=== PATIENT | female | born 1950 | race Caucasian/White ===

== ENCOUNTER → 2017-04-29 | Outpatient (CLI) | payer MEDICARE, OTHER | LOC: M.RAD 12:08 | DX: M17.11 Unilateral primary osteoarthritis, right knee (principal) ==

== ENCOUNTER 2019-06-22 12:22 | Inpatient (IN) | payer MEDICARE, OTHER ==
[~2019-06-22] VITALS: Ht 162.6 cm; Wt 83.9 kg
--- NOTE | ~2019-06-22 | PROC ---
[address] [address] PROCEDURE REPORT Name: NEREIDA CONNELLY Room: [address] IN M.R.#: [id number] Admission: 06/22/19 Attend Phys: Shantell Rosa MD Discharge: 06/25/19 Date of : 50 Report #: [id number] THIS REPORT FOR: //name// cc: Noreen Feldman MD, Lin W. MD ~ THIS REPORT FOR: //name// For GI report, please see the Provation report in Perceptive 7 content. By: 0633Medical Records Staff GRACIE /FAIZA
[2019-06-22 12:44] VITALS: BP 146/47
[2019-06-22] MEDS ORDERED: CELEBREX 200 M200 M1 PO (12:49)
[2019-06-22] MEDS ORDERED: PERCOCET 5-3251 EACH PO (12:50)
[2019-06-22] MEDS ORDERED: ASA81BEC PO (12:51)
[2019-06-22 13:18] LABS: ABSOLUTE EOSINOPHILS 0.3 thou/uL (0.0-0.7); ABSOLUTE MONOCYTES 0.4 thou/uL (0.0-1.2); ABSOLUTE NEUTROPHILS 4.6 thou/uL (1.6-8.1); BASOPHILS 0.8 %; EOSINOPHILS 4.4 %; LYMPHOCYTES 15.9 %; MCH 30.1 pg (26.0-34.0); MCHC 31.9 g/dL (28.0-37.0); MCV 94.4 fL (80.0-100.0); MONOCYTES 6.6 %; MPV 7.1 fl. (7.2-11.1); NUCLEATED RBCS 0 /100WBC; PLATELET COUNT* 362 thou/uL (150-400); POLYS 72.3 %; RBC 1.79 mil/uL (4.20-5.00); RDW-CV 16.7 % (10.5-14.5); WBC 6.4 thou/uL (4.0-11.0)
[2019-06-22 13:19] LABS: HEMATOCRIT 16.9 % (37.0-47.0); HEMOGLOBIN 5.4 gm/dL (12.0-15.0)
[2019-06-22 13:29] LABS: CALCIUM 8.2 mg/dL (8.5-10.1); CREATININE 0.6 mg/dL (0.6-1.3); POTASSIUM 3.7 mmol/L (3.5-5.1)
[2019-06-22 13:40] LABS: ALBUMIN 2.7 g/dL (3.4-5.0); TOTAL BILIRUBIN 0.2 mg/dL (<0.1-1.0); TOTAL PROTEIN 5.2 g/dL (6.4-8.2)
[2019-06-22 15:31] LABS: URINE BILIRUBIN NEGATIVE (Negative); URINE BLOOD NEGATIVE (Negative); URINE CLARITY CLEAR; URINE COLOR YELLOW; URINE GLUCOSE-RANDOM NEGATIVE (Negative); URINE KETONES NEGATIVE (Negative); URINE LEUKOCYTES-REFLEX 1+ (Negative); URINE NITRITE-REFLEX NEGATIVE (Negative); URINE PROTEIN NEGATIVE (Negative); URINE SPECIFIC GRAVITY <= 1.005 (1.005-1.030); URINE UROBILINOGEN 0.2 E.U./dl (0.2-1.0)
[2019-06-22 15:44] LABS: BACTERIA-REFLEX 1-9 Few /HPF (None Seen); CASTS None Seen /LPF (None Seen); CRYSTALS None Seen /LPF (None Seen); MUCUS 0-3 Light strn/LPF (None Seen); SQUAMOUS 0-3 Few /LPF (0-3); URINE RBC 0-2 Rare /HPF (0-2); URINE WBC-REFLEX 6-15 Few /HPF (0-5)
--- NOTE | 2019-06-22 16:52 | EKG ---
[place] [address] ELECTROCARDIOGRAM REPORT Name: JUANASHERRINEREIDA CALVIN Room: [place] [address] ADM IN .R.#: [id number] Admission: 06/22/19 Attend Phys: Shantell Rosa, Discharge: Date of : 50 Date of Service: 06/22/19 1328 Report #: [id number] THIS REPORT FOR: //name// [facility] ED Test Date: 2019-06-22 Test Time: 13:28:20 Pat Name: NEREIDA CONNELLY Department: Room: [facility] Gender: F Gun Numberer: : 1950 Requested By: Kevin Rocha Order Number: [id number] MD: Ji Lucas Measurements Intervals [place] Rate: 94 P: 22 WY: 142 QRS: 40 QRSD: 90 T: 69 QT: 352 QTc: 441 Interpretive Statements Sinus rhythm Abnormal R-wave progression, early transition No previous ECG available for comparison Electronically Signed On 06-22-2019 16:51:35 RADIOLOGICAL METALLURGIST by Ji Lucas [email or web address] <ELECTRONICALLY SIGNED> By: Ji Lucas MD, [facility] 06/22/19 1651 1328 1328 Ji Lucas MD, [facility] /EPI
[2019-06-22 19:59] VITALS: BP 156/62
[2019-06-22 20:00] VITALS: BP 141/50
[2019-06-22 20:20] VITALS: BP 141/50
[2019-06-22 22:25] VITALS: BP 108/55; BP 111/56; BP 113/58; BP 123/57; BP 128/58
[2019-06-23] VITALS (7 sets, daily range): BP systolic 116–163; BP diastolic 45–74
[2019-06-23 04:58] LABS: MCH 30.5 pg (26.0-34.0); MCHC 32.5 g/dL (28.0-37.0); MCV 93.8 fL (80.0-100.0); MPV 7.4 fl. (7.2-11.1); RBC 1.95 mil/uL (4.20-5.00); RDW-CV 15.1 % (10.5-14.5); WBC 4.8 thou/uL (4.0-11.0)
--- NOTE | 2019-06-23 05:10 | NUR ---
PT RECIEVED FROM ED IN ROOM 231. SAT MAINTAINED IN RA. ALERT AND ORIENTED X4. C/O PAIN, MEDICATION GIVEN PER EMAR. ONE UNIT OF BLOOD TRANSFUSED. PROTONIX GTT RUNNING. CALL LIGHT WITHIN REACH AND BED IN LOW POSITION. HOURLY ROUNDING DONE FOR PT SAFETY.
[2019-06-23 05:18] LABS: ALBUMIN 2.3 g/dL (3.4-5.0); CALCIUM 7.4 mg/dL (8.5-10.1); CREATININE 0.5 mg/dL (0.6-1.3); POTASSIUM 3.8 mmol/L (3.5-5.1); TOTAL BILIRUBIN 0.5 mg/dL (<0.1-1.0); TOTAL PROTEIN 4.6 g/dL (6.4-8.2)
[2019-06-23 05:50] LABS: HEMATOCRIT 18.3 % (37.0-47.0)
--- NOTE | 2019-06-23 11:15 | NUR ---
MET WITH PT TO DISCUSS HOME SITUATION/DC PLANNING. PT LIVES WITH SPOUSE. HE HAS BEEN ASSISTING HER SINCE RECENT OUTPT KNEE SURGERY AT [facility]. SHE HAD HH FOR 2 WEEKS WITH [facility] (SHE THINKS) AND HAD JUST STARTED OUTPT THERAPY AT [facility]. CALLED TO CONFIRM, PER [facility] [phone],. PT JUST NEEDS TO CALL TO RESCHEDULE NEXT APPT. PT HAS WALKER, CANE, TOILET RISER. STATES HAS STEPS AT HOME BUT DOING WELL UNTIL THIS ADMIT. PLANS TO RETURN TO OUTPT THERAPY AT [place]. WILL FOLLOW
--- NOTE | 2019-06-23 12:57 | NUR ---
PT RESTING, CLWR. VSS ON RA. SR ON . C/O PAIN TO LOWER BACK. MED PATCH IN PLACE AND SUPPORT TO BACK. PT TOLERATED BLOOD TRANSFUSION WITHOUT DIFFICULTY. LS CTA. PT NPO FOR PROCEDURE. WCTM
--- NOTE | 2019-06-23 16:36 | 2DMMODE ---
[place] [address] 2 D/M-MODE ECHOCARDIOGRAM Name: MARICELNEREIDA Renteria Room: [address] IN [facility]#: [id number] Admission: 06/22/19 Attend Phys: Shantell Rosa, Discharge: Date of : 50 Date of Service: 06/23/19 1634 Report #: [id number] THIS REPORT FOR: cc: Noreen Feldman MD, Lin W. MD Liston, Michael J. MD [facility] ~ APPROVED REPORT Study performed: 06/23/2019 10:43:22 EXAM: Comprehensive 2D, Doppler, and color-flow Echocardiogram Patient Location: In-Patient Room #: [facility] Status: routine BSA: 1.89 HR: 96 bpm BP: 1161/59 mmHg Rhythm: NSR Other Information Study Quality: Good Indications Murmur 2D Dimensions IVSd: 13.05 (7-11mm) LVOT Diam: 19.06 (18-24mm) LVDd: 43.12 mm PWd: 10.40 (7-11mm) Ascending Ao: 28.95 (22-36mm) LVDs: 19.79 (25-40mm) Volumes Left Atrial Volume (Systole) LA ESV Index: 43.30 mL/m2 Aortic Valve AoV Peak Marcelino.: 1.86 m/s AO Peak Gr.: 13.81 mmHg LVOT Max P.69 mmHg AO Mean Gr.: 7.83 mmHg LVOT Mean P.09 mmHg LVOT Max V: 1.47 m/s AO V2 VTI: 38.95 cm LVOT Mean V: 1.07 m/s NANCY (VTI): 2.60 cm2 LVOT V1 VTI: 35.56 [place] [address] 2 D/M-MODE ECHOCARDIOGRAM Name: NEREIDA CONNELLY Room: [address] IN ..#: [id number] Admission: 06/22/19 Attend Phys: Shantell Rosa, Discharge: Date of : 50 Date of Service: 06/23/19 1634 Report #: [id number] E/A Ratio: 0.85 MV Decel. Time: 227.91 ms MV E Max Marcelino.: 1.20 m/s MV PHT: 66.09 ms MVA (PHT): 3.33 cm2 TDI E/Lateral E': 10.91 E/Medial E': 13.33 Medial E' Marcelino.: 0.09 m/s Lateral E' Marcelino.: 0.11 m/s Pulmonary Valve PV Peak Marcelino.: 1.28 m/s PV Peak Gr.: 6.59 mmHg Left Ventricle The left ventricle is normal size. There is normal LV segmental wall motion. Mild concentric left ventricular hypertrophy. Left ventricular systolic function is vigorous. LVEF is >70%. Grade I - abnormal relaxation pattern. Right Ventricle The right ventricle is normal size. The right ventricular systolic function is normal. Atria Left atrium is moderately dilated. The right atrium size is normal. Aortic Valve Mild aortic valve sclerosis. No aortic regurgitation is present. There is no aortic valvular stenosis. Mitral Valve The mitral valve is normal in structure. Trace mitral regurgitation. No evidence of mitral valve stenosis. Tricuspid Valve The tricuspid valve is normal in structure. Trace tricuspid regurgitation. Unable to assess PA pressure. Pulmonic Valve The pulmonary valve is normal in structure. There is no pulmonic valvular regurgitation. Great Vessels The aortic root is normal in size. IVC [place] [address] 2 D/M-MODE ECHOCARDIOGRAM Name: NEREIDA CONNELLY Dexter Room: [address] IN [facility]#: [id number] Admission: 06/22/19 Attend Phys: Shantell Rosa, Discharge: Date of : 50 Date of Service: 06/23/19 1634 Report #: [id number] collapses >50% with inspiration. Pericardium There is no pericardial effusion. <Conclusion> The left ventricle is normal size. Mild concentric left ventricular hypertrophy. Left ventricular systolic function is vigorous. LVEF is >70%. Grade I - abnormal relaxation pattern. Left atrium is moderately dilated. Trace mitral regurgitation. Trace tricuspid regurgitation. IVC is normal in size and collapses >50% with inspiration. <ELECTRONICALLY SIGNED> By: David Arroyo MD, FACC 06/23/19 1634 1634 1634 David Arroyo MD, FACC /INF
[2019-06-24] VITALS (7 sets, daily range): BP systolic 133–166; BP diastolic 52–78
[2019-06-24 04:40] LABS: HEMATOCRIT 20.7 % (37.0-47.0); MCH 29.8 pg (26.0-34.0); MCHC 33.2 g/dL (28.0-37.0); MCV 89.6 fL (80.0-100.0); MPV 7.3 fl. (7.2-11.1); RBC 2.31 mil/uL (4.20-5.00); RDW-CV 17.2 % (10.5-14.5); WBC 4.8 thou/uL (4.0-11.0)
--- NOTE | 2019-06-24 04:47 | NUR ---
PATIENT HAS REMAINED ALERT AND ORIENTED X 4 THROUGHOUT THE SHIFT AND RESTING QUIETLY ON HOURLY ROUNDS. UP TO C WITH GAIT BELT AND WALKER. NEEDS ASSIST WITH RLE ( RECENT TOTAL KNEE) IN AND OUT OF BED. HAS NOT BEEN DIZZY WHEN UP BUT STILL FEELS WEAK. MEDICATED FOR RIGHT KNEE PAIN X 2. LOW GRADE TEMP. MEDS AND IVF'S PER ORDER. VITAL SIGNS STABLE. SR ON THE MONITOR FOR THE SHIFT. CONTINUE TO MONITOR.
[2019-06-24 05:22] LABS: CALCIUM 7.5 mg/dL (8.5-10.1); CREATININE 0.6 mg/dL (0.6-1.3); MAGNESIUM 2.1 mg/dL (1.8-2.4); POTASSIUM 3.6 mmol/L (3.5-5.1)
[2019-06-24 05:31] LABS: HEMOGLOBIN 6.9 gm/dL (12.0-15.0)
--- NOTE | 2019-06-24 06:19 | NUR ---
Critical lab Hgb 6.9 this am. Valdo sent with results. Before return call from primary, consulting physician has entered orders for IV iron. Second page to primary with updated order info. Continue to monitor.
--- NOTE | 2019-06-24 14:26 | NUR ---
CONTINUE TO FOLLOW, MET WITH PT AND SPOUSE. PT STATES FEELING IMPROVED, GETTING IRON INFUSION AND POSSIBLE ANOTHER BLOOD TRANSFUSION. TO WORK WITH THERAPY TODAY BUT UP WITH WALKER TO BR EARLIER AND STATES DID WELL. PT PLANS TO RETURN HOME AT [facility] SPOUSE AND RESUME HER OUTPT THERAPY. NUMBER IN HER DC PAPERS. NO OTHER NEEDS ID'D
--- NOTE | 2019-06-24 19:01 | NUR ---
BERNICE RESTING IN BED. UP AD EDER IN ROOM. BLOOD TRANSFUSION COMPLETED. HOURLY ROUNDING COMPLETED FOR PATIENT SAFETY.
[2019-06-25 04:00] VITALS: BP 149/60
--- NOTE | 2019-06-25 04:39 | NUR ---
ASSUMED CARE AT 1920H, ON RA AND TOLERATED.NO DISTRESS AND NO PAIN NOTED.NO POST REACTION FROM BLOOD TRANSFUSION.CONTINUE MONITORING AND TOWARD GOALS,
[2019-06-25 05:19] LABS: CREATININE 0.6 mg/dL (0.6-1.3); MAGNESIUM 2.1 mg/dL (1.8-2.4); POTASSIUM 3.6 mmol/L (3.5-5.1)
[2019-06-25 05:21] LABS: HEMATOCRIT 28.1 % (37.0-47.0); MCHC 32.5 g/dL (28.0-37.0); MCV 89.1 fL (80.0-100.0); MPV 7.6 fl. (7.2-11.1); RBC 3.16 mil/uL (4.20-5.00); RDW-CV 16.3 % (10.5-14.5); WBC 4.7 thou/uL (4.0-11.0)
[2019-06-25 05:33] LABS: HEMOGLOBIN 9.1 gm/dL (12.0-15.0)
[2019-06-25 08:00] VITALS: BP 147/69
[2019-06-25] MEDS ORDERED: PANTOPRAZOLE SO40 M1 PO (10:11)
[2019-06-25] MEDS ORDERED: BACTRIM DS TAB1 EAC1 PO (10:11)
[2019-06-25] MEDS ORDERED: LIDOPATCH1 EACH TOP (10:11)
[2019-06-25 13:46] VITALS: BP 147/74
--- NOTE | 2019-06-25 18:00 | NUR ---
PT VSS, A&OX4, NSR ON TELE, UP WITH WALKER DUE TO RT KNEE REPLACEMENT, HOURLY ROUNDING PERFORMED, POSSESSIONS AND CALL LIGHT WITHIN REACH. REC DISCHARGE ORDERS, REVIEWED WITH PATIENT, REMOVED TELE MONITOR AND IV WITHOUT COMPLICATION. PATIENT TAKEN IN WHEELCHAIR BY NURSING STAFF TO FRONT DOOR, PICKED UP BY SPOUSE IN FAMILY CAR.
--- NOTE | 2019-06-27 15:42 | NUR ---
RECEIVED CALL FROM SID/YUNI ANAYA AT DR NIXON'S OFFICE RE: PT NOT HEARD FROM HH YET. PER DC SUMMARY, HAD ORDERS FOR HH AT OR ON 06/24. NONE WAS ARRANGED AND PER CM CONVERSATIONS WITH PT ON 06/23, SHE PLANNED TO RETURN TO HER PREVIOUSLY ARRANGED OUTPT PHYSICAL THERAPY. BUT PER DC ORDERS, NEEDED A CBC DRAWN TODAY, WHICH DID NOT GET DONE. CALL TO PT, SHE STATED SHE WAS GOING BACK TO HER OUTPT THERAPY AND HAS APPT TOMORROW WITH DR SYED FOR IRON AND WILL ASK FOR THAT OFFICE TO DRAW HER CBC. ANSWERED QUESTIONS ABOUT GI/MEDS/GAVE GI DR JOSEPH AND TALKED WITH PT ABOUT HOW SHE WAS DOING. SHE WAS RELIEVED TO GET ALL INFO. F/U CALL TO SID/DR NIXON TO UPDATE
--- NOTE | 2019-07-03 16:24 | CON ---
[facility] [address] [place] [address] CONSULTATION Name: NEREIDA CONNELLY Room: [address] IN M.R.#: [id number] Admission: 06/22/19 Attend Phys: Shantell Rosa MD Discharge: 06/25/19 Date of : 50 Report #: [id number] THIS REPORT FOR: //name// cc: Noreen Feldman MD, Lin W. MD ~ THIS REPORT FOR: //name// CC: Shantell Feldman MD DICTATED BY: Yanet Blanchard [facility] DATE OF SERVICE: 06/23/2019 PRIMARY CARE PHYSICIAN: Noreen Feldman M.D. Please note at the time of this dictation, the patient was seen and physically examined by myself. REASON FOR CONSULTATION: Acute anemia, questionable melanotic stool. HISTORY OF PRESENT ILLNESS: This is a 69-year-old female who presented to the Emergency Room with worsening of her dizziness or lightheadedness. She was feeling short of breath, have any exertional dyspnea and some chest discomfort, which has progressively gotten worse over the past week. She states she was very fatigued, having difficulty trying to do rehab on her knee. The patient underwent a right knee replacement at [facility] on 05/30. She had been taking Celebrex and aspirin on a daily basis and recently quit taking that as well. She also quit taking her pantoprazole. The patient states she does have occasional issue with GERD and she will take Tums for that. The patient did undergo an EGD and colonoscopy back in 2016 that showed medium hiatal hernia. The rest was normal. Colonoscopy showed some nonbleeding hemorrhoids and that was essentially negative. The patient states she has been receiving iron infusions with Dr. Valera about once or twice a year. Her last one was in 01/2019. Otherwise, she denies any nausea or vomiting. She has had somewhat of a decreased appetite. No abdominal pain. She states her stools have been loose, which had been ongoing for a while. She states they had become darker recently and then when she started taking pain medicine, her stools did form up because of that and then when she quit taking the pain medicine, they have gone back to being very loose several times a day, but they are significantly darker than what they have been in the past. ALLERGIES: No known drug allergies. MEDICATIONS FROM HOME: Recently quit taking her Celebrex [place] [address] CONSULTATION Name: NEREIDA CONNELLY Room: [address]#: [id number] Admission: 06/22/19 Attend Phys: Shantell Rosa MD Discharge: 06/25/19 Date of : 50 Report #: [id number] aspirin and her Percocet. PAST MEDICAL HISTORY: History of breast cancer. PAST SURGICAL HISTORY: Tonsillectomy, hysterectomy, right lumpectomy, left knee surgery and now right knee surgery. FAMILY HISTORY: Mother pancreatic cancer. SOCIAL HISTORY: . Denies any alcohol, tobacco or illegal drug use. REVIEW OF SYSTEMS: Twelve-point review of systems is essentially negative except what is mentioned in the HPI. PHYSICAL EXAMINATION: VITAL SIGNS: Temperature 36.7, pulse 92, respirations 19, blood pressure 116/59. LUNGS: Diminished, but clear. CARDIOVASCULAR: Regular rate and rhythm. Murmur noted. ABDOMEN: Soft, positive bowel sounds in all 4 quadrants with no masses or tenderness noted. LABORATORY DATA: Hemoglobin on admission was 5.4. She got a unit of blood, it came up to 6. White count is 4.8, platelets 309. GFR is 122. Her iron was 26, TIBC 309, percentage sat 8 and ferritin was 55. B12 was 282. BUN is normal at 10. IMPRESSION: 1. Acute anemia. 2. Questionable melanotic stool. 3. History of iron deficiency anemia, receives iron infusions, Dr. Valera. 4. Nonsteroidal use Celebrex. 5. Recent knee replacement on the right, 3 weeks ago. 6. History of gastroesophageal reflux disease. 7. Personal history of breast cancer. 8. Family history pancreatic cancer. PLAN: 1. EGD today with Dr. Brady. 2. Continue her Protonix drip. 3. Further recommendations to be made after the procedure has been performed. Thank you for allowing us to participate in this patient's care. Please do not hesitate to call with any questions in regard to this consult. Agree with above assessment and plan by [place] [address] CONSULTATION Name: NEREIDA CONNELLY Dexter Room: [address]#: [id number] Admission: 06/22/19 Attend Phys: Shantell Rosa MD Discharge: 06/25/19 Date of : 50 Report #: [id number]. <ELECTRONICALLY SIGNED> By: Santy Brady MD 07/03/19 1624 0847 1017Santy Brady MD /
== END 2019-06-25 18:33 | disposition home health service (06) | DRG 378 ==
LOC: M.ERS 12:22 → M.TBA-ER 15:24 → M.2W 15:24
PROVIDERS: Physician Assistant; ADMIT Internal Medicine
PROC: 30233N1 Transfusion of Nonautologous Red Blood Cells into Peripheral Vein, Percutaneous Approach (ICD-10-PCS; principal; 2019-06-23)
PROC: 0D748ZZ Dilation of Esophagogastric Junction, Via Natural or Artificial Opening Endoscopic (ICD-10-PCS; principal; 2019-06-23)
DX: K25.4 Chronic or unspecified gastric ulcer with hemorrhage (principal); E44.0 Moderate protein-calorie malnutrition; K22.2 Esophageal obstruction; R01.1 Cardiac murmur, unspecified; D50.0 Iron deficiency anemia secondary to blood loss (chronic); K21.9 Gastro-esophageal reflux disease without esophagitis; K44.9 Diaphragmatic hernia without obstruction or gangrene; Z96.651 Presence of right artificial knee joint; Z80.8 Family history of malignant neoplasm of other organs or systems; Z90.49 Acquired absence of other specified parts of digestive tract; Z90.710 Acquired absence of both cervix and uterus; Z80.3 Family history of malignant neoplasm of breast; Z79.82 Long term (current) use of aspirin; Z79.899 Other long term (current) drug therapy; Z68.29 Body mass index [BMI] 29.0-29.9, adult

== ENCOUNTER 2019-11-12 13:23 | Inpatient (IN) | payer MEDICARE, OTHER ==
[~2019-11-12] VITALS: Ht 165.1 cm; Wt 88.5 kg
--- NOTE | ~2019-11-12 | OP ---
[facility] [address] [place] [address] OPERATIVE REPORT Name: NEREIDA CONNELLY Room: [address] IN .R.#: [id number] Admission: 11/12/19 Attend Phys: Charlette Boykin Discharge: 11/13/19 Date of : 50 Report #: [id number] THIS REPORT FOR: //name// cc: Noreen Feldman MD, Lin W. MD ~ THIS REPORT FOR: //name// CC: Helene Quintero DATE OF SERVICE: 11/12/2019 PREOPERATIVE DIAGNOSES: 1. Acute appendicitis. 2. Umbilical hernia. POSTOPERATIVE DIAGNOSES: 1. Acute appendicitis. 2. Umbilical hernia. OPERATIVE PROCEDURE: Laparoscopic appendectomy, repair of incarcerated umbilical hernia. ANESTHESIA: General endotracheal. OPERATIVE FINDINGS: Incarcerated umbilical hernia with acute appendicitis without perforation. DESCRIPTION OF PROCEDURE: The patient was placed under general endotracheal anesthesia and the patient's abdomen was prepped and draped in the usual sterile fashion. Timeout taken. Preop antibiotics was administered. I began by making a transverse incision supraumbilically and transdissecting with pickups and cautery with an S retractors to unroof an incarcerated umbilical hernia, which was freed from its sidewalls and the edges of the fascial defect and reduced back into the peritoneal cavity with a good opening. I then used 2-0 Prolene sutures, anchoring sutures to place the Emanuel trocar and secure at the skin. Insufflation with carbon dioxide to 5 liters was completed and a 5 mm 30-degree scope was inserted. The right lower quadrant was inspected under direct visualization, the suprapubic incision followed by passage of a bladeless trocar there and again in the right mid abdomen. Infiltration with local followed by a small stab incision and tunneling into the peritoneal cavity, a 5 mm trocar, there was established. The patient was placed in Trendelenburg and left lateral decubitus position, the appendix was carefully dissected out and lifted up. The mesoappendix was carefully dissected with ligature and then with an Endo-DEEDEE stapler fired across the appendiceal cecal junction. The appendix was freed, [place] [address] OPERATIVE REPORT Name: NEREIDA CONNELLY Room: [address] IN [facility]#: [id number] Admission: 11/12/19 Attend Phys: Charlette Boykin Discharge: 11/13/19 Date of : 50 Report #: [id number] Endopouch was fed into the abdomen and the appendix was placed in a pouch and the pouch was closed and retrieved from the umbilical incision site. Inspection of the operative site showed no active bleeding. The area was irrigated and aspirated free of fluid. I then placed the patient back in a neutral position and removed the laparoscopic instruments and released pneumoperitoneum. At the site of the umbilical hernia, another 2-0 Prolene sutures were passed through the fascial defect and tied closing the umbilical hernia and then the incisions were closed with buried 4-0 PDS sutures and sealed with Dermabond. ESTIMATED BLOOD LOSS: 5 mL. Sponge and instrument count correct. Specimen to pathology. The patient was returned to recovery room in satisfactory condition. By: 1225 [id number] Braun MD /nt
[~2019-11-12 13:23] MED LIST: ASA81BEC PO; BACTRIM DS TAB1 EAC1 PO; CELEBREX 200 M200 M1 PO; LIDOPATCH1 EACH TOP; PANTOPRAZOLE SO40 M1 PO; PERCOCET 5-3251 EACH PO
[2019-11-12 13:47] VITALS: BP 133/71
[2019-11-12 14:10] LABS: HEMATOCRIT 42.4 % (37.0-47.0); HEMOGLOBIN 14.3 gm/dL (12.0-15.0); MCH 27.9 pg (26.0-34.0); MCHC 33.7 g/dL (28.0-37.0); MCV 82.9 fL (80.0-100.0); NUCLEATED RBCS 0 /100WBC; PLATELET COUNT* 265 thou/uL (150-400); RBC 5.12 mil/uL (4.20-5.00); RDW-CV 14.4 % (10.5-14.5); WBC 16.9 thou/uL (4.0-11.0)
[2019-11-12 14:33] LABS: CALCIUM 8.4 mg/dL (8.5-10.1); CREATININE 0.9 mg/dL (0.6-1.3); POTASSIUM 3.6 mmol/L (3.5-5.1)
[2019-11-12 14:37] LABS: ALBUMIN 3.7 g/dL (3.4-5.0); TOTAL BILIRUBIN 1.6 mg/dL (<0.1-1.0); TOTAL PROTEIN 7.4 g/dL (6.4-8.2)
[2019-11-12 14:40] LABS: ABSOLUTE EOSINOPHILS 0.2 thou/uL (0.0-0.7); ABSOLUTE LYMPHOCYTES 1.4 thou/uL (0.8-5.3); ABSOLUTE MONOCYTES 0.3 thou/uL (0.0-1.2); PLATELET ESTIMATE ADEQUATE
[2019-11-12 15:46] LABS: URINE BILIRUBIN NEGATIVE (Negative); URINE BLOOD TRACE (Negative); URINE CLARITY CLEAR; URINE COLOR YELLOW; URINE GLUCOSE-RANDOM NEGATIVE (Negative); URINE KETONES TRACE (Negative); URINE LEUKOCYTES-REFLEX 1+ (Negative); URINE NITRITE-REFLEX NEGATIVE (Negative); URINE PROTEIN NEGATIVE (Negative); URINE SPECIFIC GRAVITY <= 1.005 (1.005-1.030); URINE UROBILINOGEN 0.2 E.U./dl (0.2-1.0)
[2019-11-12 15:51] LABS: SQUAMOUS >10 Many /LPF (0-3)
[2019-11-12 15:52] LABS: URINE RBC 3-10 Few /HPF (0-2); URINE WBC-REFLEX 0-5 Rare /HPF (0-5)
[2019-11-12 15:53] LABS: CASTS None Seen /LPF (None Seen); CRYSTALS None Seen /LPF (None Seen); MUCUS 0-3 Light strn/LPF (None Seen)
[2019-11-12 16:20] LABS: APTT 26.1 Seconds (25.0-31.3); PROTIME 10.7 Seconds (9.20-11.50)
[2019-11-12 17:00] VITALS: BP 165/64
--- NOTE | 2019-11-12 19:47 | NUR ---
PATIENT ARRIEVED FROM RECOVERY AT 1900. PATIENT SETTLED TO ROOM. PATIENT ALERT AND ORIENTED. PATIENT DENIES ANY PAIN OR NAUSEA. PATIENT GIVEN JELLO AND TOLERATED WELL. PATIENT ASSISTED TO BEDPAN TO URINATE. LAP SITES X 3 APPROXIMATED WELL. PATIENT DENIES ANY NEEDS AT THIS TIME. CALL LIGHT WITHIN REACH.
[2019-11-12 20:00] VITALS: BP 138/64
[2019-11-12 21:35] VITALS: BP 138/64
[2019-11-13] VITALS: BP 152/64
[2019-11-13 04:05] VITALS: BP 152/76
[2019-11-13 04:12] LABS: ABSOLUTE LYMPHOCYTES 0.4 thou/uL (0.8-5.3); ABSOLUTE MONOCYTES 0.4 thou/uL (0.0-1.2); ABSOLUTE NEUTROPHILS 10.7 thou/uL (1.6-8.1); HEMATOCRIT 39.9 % (37.0-47.0); HEMOGLOBIN 12.9 gm/dL (12.0-15.0); LYMPHOCYTES 3.9 %; MCHC 32.3 g/dL (28.0-37.0); MCV 86.5 fL (80.0-100.0); MONOCYTES 3.2 %; MPV 7.8 fl. (7.2-11.1); NUCLEATED RBCS 0 /100WBC; PLATELET COUNT* 197 thou/uL (150-400); POLYS 92.9 %; RBC 4.61 mil/uL (4.20-5.00); RDW-CV 14.9 % (10.5-14.5); WBC 11.5 thou/uL (4.0-11.0)
--- NOTE | 2019-11-13 07:06 | NUR ---
PATIENT ADMITTED TO UNIT FROM THE PACU AT APPROXIMATEY 1900. VSS ON RA. PATIENT AWAKE AND DOING WELL. PAIN VERY WELL CONTROLLED. PATIENT ORIENTED TO ROOM AND POLICIES. PATIENT HAS BEEN UP AMBULATING TO THE BATHROOM AND URINATING ADEQUATELY. LAP SITES X 3 ARE WELL APPROXIMATED AND PARKING CASHIER. PATIENT HAS TOLERATED A REGULAR DIET WITH NO C/O OF NAUSE OR VOMITING. IV IN LEFT HAND-NS @ 80ML/HR. PATIENT INSTRUCTED TO USE CALL LIGHT WHEN NEEDING ASSISTANCE. HOURLY ROUNDS MADE. WILL CONTINUE WITH PLAN OF CARE AND NURSING TO MONITOR.
[2019-11-13 07:25] VITALS: BP 149/71
[2019-11-13 09:28] VITALS: BP 149/71
--- NOTE | 2019-11-13 12:30 | NUR ---
PT GIVEN DISCHARGE INFORMATION. PT DID NOT WANT TO WAIT FOR PAIN MED PRESCRIPTION. PT EDUCATED ON CALLING DOCTOR IF NEEDING MEDS. PT VERBALIZED UNDERSTANDING. IV REMOVED. PT LEFT VIA WHEELCHAIR WITH FAMILY TO HOME. FALL RISK PRECAUTIONS IN PLACE. HOURLY ROUNDING COMPLETED.
[2019-11-13 12:33] VITALS: BP 149/71
--- NOTE | 2019-11-13 17:58 | CON ---
[address] [address] CONSULTATION Name: NEREIDA CONNELLY Room: [address]R.#: [id number] Admission: 11/12/19 Attend Phys: Charlette Boykin Discharge: 11/13/19 Date of : 50 Report #: [id number] THIS REPORT FOR: //name// cc: Noreen Feldman MD, Lin W. MD ~ THIS REPORT FOR: //name// CC: Helene Quintero DATE OF SERVICE: 11/12/2019 SURGICAL CONSULTATION REPORT ADMITTING DIAGNOSIS: Acute appendicitis. HISTORY OF PRESENT ILLNESS: The patient is a 69-year-old female with a history of breast cancer, gallbladder disease, who presents with a day and a half of worsening progressive abdominal pain localizing to the right lower quadrant. She was seen by the Emergency Department and was noted to be tender in her right lower quadrant and on physical exam and then CT scanning was revealed to have acute appendicitis and so surgery was consulted. PAST SURGICAL HISTORY: Includes a hysterectomy. She has had chemotherapy in the past as well. REVIEW OF SYSTEMS: Otherwise, there has been no acute weight loss, shortness of breath, chest pain. PHYSICAL EXAMINATION: GENERAL: Obese female, lying in bed. HEAD, EARS, EYES, NOSE AND THROAT: Unremarkable. Sclerae are anicteric. NECK: Supple. LUNGS: Clear. CARDIAC: Regular rate and rhythm without murmur. ABDOMEN: Soft with a healed umbilical scar and right upper quadrant and Pfannenstiel scars with no hernia. EXTREMITIES: Without varicosities or pitting edema, right lower quadrant tenderness on palpation. White blood cell count of 17,000. IMPRESSION AND PLAN: Acute appendicitis. I have outlined laparoscopic [facility] [address] [place] [address] CONSULTATION Name: NEREIDA CONNELLY Room: [address] IN .R.#: [id number] Admission: 11/12/19 Attend Phys: Charlette Boykin Discharge: 11/13/19 Date of : 50 Report #: [id number] appendectomy its risks and benefits, answered her questions. She understands and wishes to proceed. <ELECTRONICALLY SIGNED> By: Helene Braun MD 11/13/19 1758 1630 1657Helene Branu MD /nt
--- NOTE | 2019-11-14 11:04 | EKG ---
[place] [address] ELECTROCARDIOGRAM REPORT Name: NEREIDA CONNELLY Room: [address] IN M.R.#: [id number] Admission: 11/12/19 Attend Phys: Ron Quintero Discharge: 11/13/19 Date of : 50 Date of Service: 11/12/19 1620 Report #: [id number] THIS REPORT FOR: //name// [facility] ED Test Date: 2019-11-12 Test Time: 16:20:38 Pat Name: NEREIDA CONNELLY Department: Room: [facility] Gender: F Checkerer Hand: REEMA : 1950 Requested By: Kevin Rocha Order Number: [id number] MD: Alex Rehman Measurements Intervals [place] Rate: 92 P: 40 OR: 138 QRS: 41 QRSD: 94 T: 62 QT: 379 QTc: 469 Interpretive Statements Sinus rhythm Compared to ECG 06/22/2019 13:28:20 No significant changes Electronically Signed On 11-14-2019 11:03:57 CDT by Alex Rehman [email or web address] <ELECTRONICALLY SIGNED> By: Alex Rehman MD, [facility] 11/14/19 1103 1620 1620 Alex Rehman MD, [facility] /EPI
--- NOTE | 2019-11-18 12:06 | PATH ---
[address] [address] PATHOLOGY RPT PROCEDURE Name: NEREIDA JORGE Room: [address] IN M.R.#: [id number] Admission: 11/12/19 Date of : 50 Discharge: 11/13/19 Report #: [id number] Path Case #: [id number] [facility] Accession Number: [id number] . 01 Material submitted: . appendix - APPENDIX . 01 Clinical history: . Acute appendicitis . 02 Diagnosis: Vermiform appendix, excision: - Acute appendicitis with acute serositis. - Fecalith. - Negative for malignancy. . (MLK:jesica; 11/17/2019) QMS 11/18/2019 1110 Local . 02 Electronically signed: . Cassy Dominguez MD, Pathologist NPI- [id number] . 01 Gross description: . The specimen is received in formalin, labeled "Nereida Jorge, appendix" and consists of an appendix measuring 8.0 cm in length and up to 1.1 cm in diameter with mesoappendix measuring 3.2 cm thick. The serosa is green vogel with exudate. The margin is closed with a line of dalia and inked black. Sectioning reveals a dilated lumen containing brown fecal material and fibrous obliteration of the tip. [employer] sections are submitted in A1-A2. (SDY; 11/15/2019) SYU/SYU 11/15/2019 1645 Local . 02 Pathologist provided ICD-10: K35.80, K65.8 . 02 CPT . 370381 Specimen Comment: A courtesy copy of this report has been sent to [phone], [phone] Specimen Comment: [phone], Specimen Comment: Report sent to ,DR LOAIZA / DR NIXON Performed at: [address] [id number] MD Frandy Sexton MD Phone: [phone] Performed at: [address] [place] [address] PATHOLOGY RPT PROCEDURE Name: AMBER JORGEYaritza Renteria Room: [address] DIS IN M.R.#: [id number] Admission: 11/12/19 Date of : 50 Discharge: 11/13/19 Report #: [id number] Path Case #: [id number] [facility] [address] MIKE Garcia [id number] MD Dwayne Marie MD Phone: [phone]
== END 2019-11-13 12:45 | disposition home or self-care (01) | DRG 854 ==
LOC: M.ERS 13:23 → M.ORTHSURG 16:04 → M.TBA-ER 16:04 → M.ORTHSURG 19:06
PROVIDERS: Physician Assistant; Surgery; ADMIT Internal Medicine; ATTEND Internal Medicine
DX: A41.9 Sepsis, unspecified organism (principal); K35.80 Unspecified acute appendicitis; K42.0 Umbilical hernia with obstruction, without gangrene; M19.90 Unspecified osteoarthritis, unspecified site; K21.9 Gastro-esophageal reflux disease without esophagitis; Z90.49 Acquired absence of other specified parts of digestive tract; Z90.710 Acquired absence of both cervix and uterus; Z79.899 Other long term (current) drug therapy; Z85.3 Personal history of malignant neoplasm of breast; Z92.21 Personal history of antineoplastic chemotherapy; Z03.818 Encounter for observation for suspected exposure to other biological agents ruled out